=== PATIENT | male | born 2000 | race Two or more races ===

== ENCOUNTER 2024-09-09 03:00 | Emergency (ER) | payer MEDICAID, SELFPAY ==
[2024-09-09 03:00] VITALS: BMI 29.8
[2024-09-09 03:05] VITALS: BP 126/63; PULSE 110; RESP 19; TEMP 37.4; O2SAT 97
--- NOTE | 2024-09-09 03:25 | XR_ITS ---
Examination: CT abdomen and pelvis without contrast. Coronal 3-D reconstructions. Sagittal 2-D reconstructions. Date and time of exam:September 09, 2024 at 0341 hrs. Indications: Flank and left groin pain beginning 3 hours ago CTDI: vol (mGy): 8.42 DLP: (mGycm): 491 Technique: Axial images of the abdomen have been obtained, 3 mm slice thickness Intravenous contrast material has not been administered. Low dose protocols were performed. One or more of the following dose reduction techniques were used; automated exposure control, adjustment of the mA and/or KV according to patient size, use of iterative reconstruction technique. Findings: No focal liver or splenic lesions No gallstones No pancreatic or adrenal mass No renal or ureteral calculi, no hydronephrosis Normal appendix No bowel obstruction or diverticulitis No prostatomegaly Contracted urinary bladder Osseous structures intact Impression: No renal or ureteral calculi, no hydronephrosis Normal appendix
--- NOTE | 2024-09-09 03:25 | XR_ITS ---
Examination: Testicular sonography complete Technique: Multiple high resolution grayscale sonographic images testes, assessment arterial inflow venous outflow Doppler spectral analysis carful analysis Exam date and time: September 09, 2024 at 0412 hrs. Indications: Onset left testicular pain beginning 3 hours ago Findings: Right testis 4.1 x 2.7 x 2.7 cm Epididymis 9 mm Arterial flow testicle. No testicular mass Mild hydrocele Left testis 3.9 x 2.4 x 2.6 cm Epididymis 8 mm Arterial flow to the testicle. No testicular mass Mild varicocele Mild hydrocele Impression: No testicular torsion or testicular mass Mild left varicocele Mild bilateral hydroceles
--- NOTE | 2024-09-09 03:26 | PD.EDRME ---
Rapid Medical Screening Exam RME Arrival date/time: 09/09/24 03:00 24M with no significant PMH presents to ED with 2 hours of L flank/testicular pain. Patient denies dysuria, penile discharge, and concern for STD. Chief Complaint: Urogenital-Male Vital signs: Vital Signs Temperature 99.3 F 09/09/24 03:05 Pulse Rate 110 H 09/09/24 03:05 Respiratory Rate 19 09/09/24 03:05 Blood Pressure 126/63 09/09/24 03:05 Pulse Oximetry (%) 97 09/09/24 03:05 Oxygen Delivery Method Room Air 09/09/24 03:05 RME Narrative: 23-year-old male presenting to the emergency department by car after having left achy lateral testicular pain with this started at 1:40 PM he progressively got worse. Pain does not radiate. Patient reports that the pain started after he was running today. Patient states he is not sexually active at this time he does not normally been ejaculating. Review of systems :no abdominal pain, no groin pain. No fever . Physical exam: Nurse is present at the bedside during the exam. Lungs are clear Abdomen soft nontender nondistended No femoral groin hernia Minimal tenderness to the lateral scrotal area without erythema. No epidemic no pain No rash/Cellulitis in the groin area. Lower extremities no edema Assessment and plan: 24-year-old with groin pain. Differential diagnosis includes: Torsion, UTI, hernia Ultrasound shows possible testicular masses or torsion. CT Does not show any abnormality at this time. Cyst does not show UTI. She is given Motrin
[2024-09-09 03:43] LABS: Collection Type, Urine Clean Catch; Squamous Epithelial Cell,Urine 0 /hpf (0-5)
[2024-09-09 03:48] LABS: Bilirubin,Urine Negative (Negative); Blood,Urine Trace (Negative); Clarity,Urine Clear (Clear/Hazy); Color,Urine Yellow (Lt Yel-Yel); Culture Indicated,Urine Not Indicated; Glucose, Urine Negative (Negative); Ketones,Urine Negative (Negative); Leukocyte Esterase,Urine Negative (Negative); Nitrite,Urine Negative (Negative); Protein,Urine 1+ (Neg - Trace); RBC,Urine 3 /hpf (0-3); Specific Gravity,Urine 1.032 (1.001-1.035); Urobilinogen,Urine Negative mg/dL (0.0-1.0); WBC,Urine 2 /hpf (0-5)
[2024-09-09 03:55] LABS: Amphetamine/Methamp Scrn,U Negative (Negative); Barbiturate Screen,Urine Negative (Negative); Benzodiazepines Screen,Urine Negative (Negative); Benzoylecgonine Screen, Ur Negative (Negative); Fentanyl Screen,Urine Negative (Negative); Opiate Screen,Urine Negative (Negative); THC Screen,Urine Negative (Negative)
--- NOTE | 2024-09-09 04:39 | PRELIM_ITS ---
CT scan of the abdomen and pelvis without intravenous contrast (axial sections with sagittal and lanie nal reformats) September 09, 2024 0341 hours Clinical History: L flank/groin pain Comparison: No prior study is available for comparison. Findings:The lung bases are clear.The liver, gallbladder, pancrea s, spleen, kidneys and adrenals are unremarkable on this noncontrast study.No evidence of bowel obstr uction. The appendix is within normal limits (axial images 149-156/ 278). There is no mesenteric or r etroperitoneal adenopathy.The urinary bladder is unremarkable. There is no free fluid or free air.The osseous structures are unremarkable.Impression:No evidence of renal/ureteric calculus or hydroureter onephrosis. Report Electronically Signed By: Nikhil Adan 09/09/2024 4:31:51 AM [EST]
[2024-09-09 04:51] VITALS: BP 129/85; PULSE 109; RESP 18; O2SAT 98
[2024-09-09] MEDS: IBUPROFEN TAB 400 MG TABLET 800 MG PO (04:59)
--- NOTE | 2024-09-09 05:09 | PD.EDRME ---
Rapid Medical Screening Exam E Arrival date/time: 09/09/24 03:00 23-year-old male presenting to the emergency department by car after having left achy lateral testicular pain with this started at 1:40 PM he progressively got worse. Pain does not radiate. Patient reports that the pain started after he was running today. Patient states he is not sexually active at this time he does not normally been ejaculating. Review of systems :no abdominal pain, no groin pain. No fever . Physical exam: Nurse is present at the bedside during the exam. Lungs are clear Abdomen soft nontender nondistended No femoral groin hernia Minimal tenderness to the lateral scrotal area without erythema. No epidemic no pain No rash/Cellulitis in the groin area. Lower extremities no edema Assessment and plan: 24-year-old with groin pain. Differential diagnosis includes: Torsion, UTI, hernia Ultrasound shows possible testicular masses or torsion. CT Does not show any abnormality at this time. Cyst does not show UTI. She is given Motrin Chief Complaint: Urogenital-Male Vital signs: Vital Signs Temperature 99.3 F 09/09/24 03:05 Pulse Rate 110 H 09/09/24 03:05 Respiratory Rate 19 09/09/24 03:05 Blood Pressure 126/63 09/09/24 03:05 Pulse Oximetry (%) 97 09/09/24 03:05 Oxygen Delivery Method Room Air 09/09/24 03:05 E Narrative: 23-year-old male presenting to the emergency department by car after having left achy lateral testicular pain with this started at 1:40 PM he progressively got worse. Pain does not radiate. Patient reports that the pain started after he was running today. Patient states he is not sexually active at this time he does not normally been ejaculating. Review of systems :no abdominal pain, no groin pain. No fever . Physical exam: Nurse is present at the bedside during the exam. Lungs are clear Abdomen soft nontender nondistended No femoral groin hernia Minimal tenderness to the lateral scrotal area without erythema. No epidemic no pain No rash/Cellulitis in the groin area. Lower extremities no edema Assessment and plan: 24-year-old with groin pain. Differential diagnosis includes: Torsion, UTI, hernia Ultrasound shows possible testicular masses or torsion. CT Does not show any abnormality at this time. Cyst does not show UTI. She is given Motrin
--- NOTE | 2024-09-09 05:51 | PRELIM_ITS ---
Ultrasound of the scrotum. September 09, 2024 at 0412 hours Clinical history: Left testicular pain. Co mparison: None. Technique: Real-time ultrasound was performed using Duplex scanning including arteria l inflow, venous outflow, color and spectral Doppler analysis of both testes. Findings:The right test icle is 4.1 x 2.7 x 2.7 cm. The left testicle is 3.9 x 2.4 x 2.6 cm. The right epididymis is 0.9 x 0. 9 x 0.6 cm. The left epididymis is 0.7 x 0.8 x 0.6 cm. Normal Doppler flow is present bilaterally. Th ere is mild bilateral hydroceles. There is mild left varicocele. The testicles and epididymides have normal appearance bilaterally.Impression:No acute process. No evidence of testicular torsion. Report Electronically Signed By: Ramy Amaral 09/09/2024 5:51:18 AM [EST]
--- NOTE | 2024-10-01 05:31 | EDNOTE_ITS ---
ED General RME/HPI General Chief complaint: Urogenital-Male Stated complaint: LEFT TESTICLE PAIN Time Seen by Provider: 09/09/24 05:10 Arrival date/time: 09/09/24 03:00 Limitations: no limitations RME / HPI RME / HPI narrative: 24 yo male coming in with left testicle pain. The pain came on slowly and feels more like an ache. The patient states he has no penile discharge. No dysuria, no STDs. Has been sexually active in the past. Related Data Previous Rx's ?Medication ?Instructions ?Recorded ibuprofen 600 mg tablet 600 mg PO TID PRN pain #30 tabs 07/09/23 Allergies Allergy/AdvReac Type Severity Reaction Status Date / Time No Known Allergies Allergy Verified 09/09/24 03:02 ED Exam General Limitations: Present no limitations General appearance: Present alert and in no apparent distress Head Head exam: Present atraumatic Eye Eye exam: Present normal appearance, PERRL and EOMI ENT ENT exam: Present normal exam, normal oropharynx and mucous membranes moist Neck Neck exam: Present normal inspection, full ROM and trachea midline Chest Chest inspection: Present normal inspection and symmetric chest wall rise Respiratory Respiratory exam: Present normal lung sounds bilaterally Cardiovascular Cardiovascular exam: Present regular rate, normal rhythm and normal heart sounds Abdominal Exam Abdominal exam: Present soft and normal bowel sounds Extremities Exam Extremities exam: Present normal inspection and full ROM Back Exam Back exam: Present normal inspection and full ROM Neurological Exam Neurological exam: Present alert, oriented X3 and CN II-XII intact Psychiatric Psychiatric exam: Present normal affect and normal mood Skin Skin exam: Present warm, dry, intact and normal color Course Quality Measures none Orders Category Date Time Status CT abdomen pelvis wo con Stat Exams 09/09/24 03:25 Completed US testicular Stat Exams 09/09/24 03:25 Completed Drug Screen,Urine Stat Lab 09/09/24 03:30 Completed Urinalysis, C/S if Indicated Stat Lab 09/09/24 03:30 Completed Ibuprofen Tab [Motrin Tab] Med 09/09/24 04:54 Discontinued 800 mg PO X1 ONE Vital Signs Vital signs: Vital Signs Temperature 99.3 F 09/09/24 03:05 Pulse Rate 110 H 09/09/24 03:05 Respiratory Rate 19 09/09/24 03:05 Blood Pressure 126/63 09/09/24 03:05 Pulse Oximetry (%) 97 09/09/24 03:05 Oxygen Delivery Method Room Air 09/09/24 03:05 [facility] Patient data External records reviewed:: Other (specify) Clinical information provided by:: patient Social determinants that could affect healthcare access:: none Patient has the following chronic illnesses:: none How is presenting disease/condition affected by chronic disease/condition?: no chronic disease Evaluation data The following diagnostics were reviewed and interpreted by me:: lab results and radiology exam(s) ([facility] [address] [id number] [place] [facility] Report Signed Patient: LUPE ESTRELLA [facility]. Record#: [id number] Birthdate: 2000 Age/Sex: 24 / M Location: [facility] Attending Dr: Ordering Physician: Alex Ruiz PA-C Date of Service: ) Lab and/or radiology exams considered but not ordered:: No UTI Interpretation Summary: [facility] [address] [id number] [place] [facility] Report Signed Patient: LUPE ESTRELLA [facility]. Record#: [id number] Birthdate: 2000 Age/Sex: 24 / M Location: [facility] Attending Dr: Ordering Physician: Alex Ruiz PA-C Date of Service: 09/09/24 Procedure(s): US testicular Accession Number(s): [id number] cc: Jeff Rao MD; Dwayne Orozco MD; Alex Ruiz PA-C~ Examination: Testicular sonography complete Technique: Multiple high resolution grayscale sonographic images testes, assessment arterial inflow venous outflow Doppler spectral analysis carful analysis Exam date and time: September 09, 2024 at 0412 hrs. Indications: Onset left testicular pain beginning 3 hours ago Findings: Right testis 4.1 x 2.7 x 2.7 cm Epididymis 9 mm Arterial flow testicle. No testicular mass Mild hydrocele Left testis 3.9 x 2.4 x 2.6 cm Epididymis 8 mm Arterial flow to the testicle. No testicular mass Mild varicocele Mild hydrocele Impression: No testicular torsion or testicular mass Mild left varicocele Mild bilateral hydroceles Medications Medications considered but not ordered:: None Medication administrations:: Medication Administration History Discontinued Medications Ibuprofen (Ibuprofen Tab 400 Mg Tablet) 800 mg PO X1 ONE Stop: 09/09/24 04:55 Last Admin: 09/09/24 04:59 Dose: 800 mg Documented By: NILES As above Consultations Consultation(s) initiated? (list below): No Diagnosis Differential Diagnosis ED Complaint MDM: UTI, STD, hydrocele, varicocele, epididymitis Most likely diagnosis given after review of the tests above:: Hydrocele Admission Indicated Admission indicated?: not indicated Explain why admission is indicated or not indicated:: Pain-free. No masses. Admission Request Was there a request for admission?: No Disposition Plan Disposition Plan: Discharge Discharge Attestation Discharge Attestation: The patient and all family members were given an opportunity to ask questions and understood the discharge instructions. Discharge instructions specifically effects, indications for sooner follow up or return to the emergency department, and the expected course of current diagnosis. Patient condition: Stable Medical Decision Making Differential Diagnosis Differential Diagnosis: UTI, STD, hydrocele, varicocele, epididymitis Lab Data Labs: Lab Results 09/09/24 Range/Units 03:30 Ur Collection Type Clean Catch Urine Color Yellow (Lt Yel-Yel) Urine Clarity Clear (Clear/Hazy) Urine pH 6.0 (5.0-7.0) Ur Specific [place] 1.032 (1.001-1.035) Urine Protein 1+ A (Neg - Trace) Urine Glucose (UA) Negative (Negative) Urine Ketones Negative (Negative) Urine Blood Trace (Negative) Urine Nitrite Negative (Negative) Urine Bilirubin Negative (Negative) Urine Urobilinogen (Auto) Negative (0.0-1.0) mg/dL Ur Leukocyte Esterase Negative (Negative) Urine RBC 3 (0-3) /hpf Urine WBC 2 (0-5) /hpf Ur Squamous Epith Cells 0 (0-5) /hpf Urine Bacteria None (None) Ur Culture Indicated? Not Indicated Urine Opiates Screen Negative (Negative) Urine Fentanyl Screen Negative (Negative) Ur Barbiturates Screen Negative (Negative) U Amphetamin/Meth Scrn Negative (Negative) U Benzodiazepines Scrn Negative (Negative) U Cocaine Metab Screen Negative (Negative) U Marijuana (THC) Screen Negative (Negative) Discharge Plan Plan Patient Disposition: HOME (Self Care) Patient condition on transfer: Stable Prescriptions/Referrals Prescriptions/Med Rec: No Action ibuprofen 600 mg tablet 600 mg PO TID PRN (Reason: pain) Qty: 30 0RF Referrals: Jeff Rao MD [Primary Care Provider] - In 1 week Problem List Clinical Impression: Pain in left testicle Patient/Caregiver Discharge Instructions Diet Instructions: Pedialyte and Gatorade. Education Materials: ED Testicular Pain, Unclear Cause Additional Instructions: Can take [id number] Motrin 600 mg 3 times a day for the next 2 to 3 days for discomfort. Return for worsening symptoms, or any other concerns Print Language: Cymraes Stand Alone Forms: [employer] Award Info., Patient Portal Info Letter
== END 2024-09-09 05:11 | disposition home or self-care (01) ==
PROVIDERS: Physician Assistant; Emergency Provider Emergency Medicine; PCP Family Medicine
DX: I86.1 Scrotal varices (principal); N43.3 Hydrocele, unspecified; R10.32 Left lower quadrant pain
CPT/HCPCS: 74176; 76870; 80307; 81001; 99284; A9270